=== PATIENT | male | born 1985 | race Caucasian/White ===

== ENCOUNTER 2020-11-29 16:36 | Emergency (ER) | payer SELFPAY ==
[~2020-11-29] VITALS: Ht 175.3 cm; Wt 63.6 kg
[~2020-11-29 16:36] MED LIST: AMOXICILLIN 50500 MG PO; NORCO 325 MG-51 TAB PO
[2020-11-29 17:37] VITALS: BP 118/77; TEMP 98
[2020-11-29 20:21] VITALS: PULSE 65
== END 2020-11-29 20:21 | disposition home or self-care (01) ==
LOC: COL.ER 16:36
DX: S92.512A Displaced fracture of proximal phalanx of left lesser toe(s), initial encounter for closed fracture (principal); W22.8XXA Striking against or struck by other objects, initial encounter

== ENCOUNTER 2021-06-12 16:50 | Emergency (ER) | payer SELFPAY ==
[~2021-06-12] VITALS: Ht 175.3 cm; Wt 63.6 kg
[2021-06-12 16:56] VITALS: TEMP 98
[2021-06-12 17:43] LABS: BASO % 0.4 % (0.0-2.0); EOS # 0.2 K/mm3 (0.0-0.7); EOS % 1.7 % (0.0-4.0); GRAN # 7.1 K/mm3 (1.4-6.5); GRAN % 73.4 % (42.2-75.2); HEMATOCRIT 51.3 % (42.0-52.0); HEMOGLOBIN 17.9 g/dl (13.5-18.0); LYMPH # 1.7 K/mm3 (1.2-3.4); LYMPH % 17.3 % (20.0-51.0); MEAN CELL VOLUME 95 fl (80.0-100.0); MEAN CORPUSCULAR HEMOGLOBIN 33 pg (27-31); MEAN CORPUSCULAR HGB CONC 35 g/dl (33.0-37.0); MEAN PLATELET VOLUME 9.1 fl (7.4-10.4); MONO # 0.7 K/mm3 (0.1-0.6); MONO % 6.8 % (1.7-9.3); PLATELET COUNT 274 K/mm3 (130-400); RED BLOOD COUNT 5.38 M/mm3 (4.20-5.60); REDCELL DISTRIBUTION WIDTH-CV 12.8 % (11.5-14.5)
[2021-06-12 18:01] LABS: ALANINE AMINOTRANSFERASE 40 U/L (0-55); ALBUMIN 4.8 gm/dL (3.5-5.0); ALKALINE PHOSPHATASE 83 U/L (40-150); ANION GAP 14 mmol/L (7-16); AST,SGOT 37 U/L (5-34); BLOOD UREA NITROGEN 10 mg/dL (9-21); CALCIUM 9.5 mg/dL (8.4-10.2); CARBON DIOXIDE 25 mmol/L (22-29); CHLORIDE 101 mmol/L (98-107); CREATININE, serum 0.87 mg/dL (0.72-1.25); GLUCOSE 110 mg/dL (70-99); LIPASE 21 U/L (8-78); POTASSIUM 4.2 mmol/L (3.5-4.5); SODIUM 140 mmol/L (136-145); TOTAL PROTEIN 7.9 gm/dL (6.2-8.1)
[2021-06-12 18:04] LABS: ALCOHOL(ethanol),MEDICAL < 10 mg/dL (0-10)
[2021-06-12 18:35] LABS: BILIRUBIN,TOTAL 0.8 mg/dL (0.2-1.2)
[2021-06-12] MEDS ORDERED: PRIL40 PO (18:51)
[2021-06-12 18:53] VITALS: BP 116/84; PULSE 82
== END 2021-06-12 19:03 | disposition home or self-care (01) ==
LOC: COL.ER 16:50
PROVIDERS: Emergency Medicine
DX: K92.0 Hematemesis (principal); F10.20 Alcohol dependence, uncomplicated; F17.210 Nicotine dependence, cigarettes, uncomplicated
CPT/HCPCS: C9113; J3411; J7030

== ENCOUNTER 2023-10-09 11:33 | Inpatient (IN) | payer SELFPAY ==
[~2023-10-09] VITALS: Ht 175.3 cm; Wt 65.4 kg
[~2023-10-09 11:33] MED LIST changes: +PRIL40 PO; +Thiamine 100 MG TAB PO SCH
[2023-10-09] MEDS ORDERED: LORazepam 2 MG/ML 1 ML VIAL IV ONE ×2 (12:00→14:00)
[2023-10-09] MEDS ORDERED: Folic Acid 1 MG,Thiamine 200 MG in NS 1,000 ML IV SCH (12:00)
[2023-10-09 12:20] LABS: HEMATOCRIT 51.8 % (42.0-52.0); HEMOGLOBIN 17.6 g/dl (13.5-18.0); MEAN CELL VOLUME 101 fl (80.0-100.0); MEAN CORPUSCULAR HEMOGLOBIN 34 pg (27-31); MEAN CORPUSCULAR HGB CONC 34 g/dl (33.0-37.0); PLATELET COUNT 234 K/mm3 (130-400); RED BLOOD COUNT 5.15 M/mm3 (4.20-5.60); REDCELL DISTRIBUTION WIDTH-CV 12.9 % (11.5-14.5)
[2023-10-09 12:31] LABS: ALBUMIN 5.3 g/dL (3.5-5.0); BILIRUBIN,TOTAL 2.1 mg/dL (0.2-1.2); CALCIUM 10.6 mg/dL (8.4-10.2); CREATININE, serum 1.35 mg/dL (0.72-1.25); MAGNESIUM 2.2 mg/dL (1.6-2.6); POTASSIUM 4.3 mEq/L (3.5-4.5); TOTAL PROTEIN 9.3 g/dl (6.2-8.1)
[2023-10-09] MEDS ORDERED: Ondansetron 4 MG/2 ML VIAL IV PRN (14:30)
[2023-10-09] MEDS ORDERED: LORazepam 2 MG/ML 1 ML VIAL IV PRN (14:30)
[2023-10-09] MEDS ORDERED: NS 1,000 ML IV SCH (14:30)
[2023-10-09] MEDS ORDERED: Polyethylene Glycol 3350 17 GM PDS PO PRN (14:30)
[2023-10-09] MEDS ORDERED: LORazepam 1 MG TAB PO PRN (14:30)
[2023-10-09] MEDS ORDERED: Docusate Sodium 100 MG CAP PO PRN (14:30)
[2023-10-09] MEDS ORDERED: Acetaminophen 325 MG TAB PO PRN (14:30)
[2023-10-09] MEDS ORDERED: Mag/Al Hydrox/Simeth Susp 30 ML CUP PO PRN (14:30)
[2023-10-09 14:44] LABS: PROTHROMBIN TIME 10.4 SECONDS (9.7-12.8)
[2023-10-09] MEDS ORDERED: D5 1/2 NS 1,000 ML IV SCH (14:45)
--- NOTE | 2023-10-09 16:41 | NUR ---
Pharmacy Intern was consulted in ED to provide alcohol cessation resources to patient. SW met with patient who stated he felt like he was going to throw up but was open to brief discussion. SW provided and reviewed resources, pointing out [facility] and [facility] as he is currently uninsured. Patient does not have a PCP so SW also discussed the [facility] in [place] that can provide primary care without insurance.
[2023-10-09] MEDS ORDERED: Multivitamin TAB PO SCH (17:00)
[2023-10-09 17:06] VITALS: BP 130/92; PULSE 121; TEMP 98.2
--- NOTE | 2023-10-09 17:10 | NUR ---
PT ON FLOOR FROM ER. SEIZURE PRECAUTIONS IN PLACE. PT ORIENTED TO ROOM, CALL LIGHT IN REACH, SMOKING POLICY AND VERBALIZED UNDERSTANDING. PT DOES HAVE PERSONAL CIGARETTES IN BAG AND REEDUCATED ON POLICY. PT DENIES NEEDS. FLUIDS STARTED PER ORDER. PT DENIES NEEDS. BED IN LOWEST POSITION, CALL LIGHT IN REACH, BED ALARM ON.
[2023-10-09 17:45] VITALS: BP_SYST 130
--- NOTE | 2023-10-09 17:48 | NUR ---
DR LA CALLED AND NOTIFIED THAT PT IS MODERATE PER SUICIDE ASSESSMENT. NOTIFIED THAT EVERY 15 MINUTE OBSERVATION ORDERED PER PROTOCOL. ADDICTION PROFESSIONAL NOTIFIED. PT IN BED. BED IN LOWEST POSITION, CALL LIGHT IN REACH, BED ALARM ON, SEIZURE PRECAUTIONS IN PLACE.
--- NOTE | 2023-10-09 18:36 | NUR ---
THIS NURSE CALLED DR HERNANDEZ AND NOTIFIED HIM OF 15 MINUTE OBSERVATIONS DUE TO MODERATE ON SUICIDE SCALE. PROVIDER TOLD THIS NURSE THAT DR LA WILL ROUND ON PT
--- NOTE | 2023-10-09 19:14 | NUR ---
PATIENT RESTING LYING ON LEFT SIDE WITH EYES CLOSED IN THE APPEARANCE OF SLEEP WITH NO FAMILY PRESENT WITH TV OFF WITH NO ACUTE DISTRESS NOTED. PATIENT ON ROOM AIR. D5 1/2 NS INFUSING INTO LEFT AC WITH NO COMPLICATIONS NOTED. BEDSIDE SHIFT REPORT COMPLETED WITH VETO GRIDER AT THIS TIME. BED IN LOW POSITION WITH WHEELS LOCKED WITH RAILS UP X3 AND CALL LIGHT WITHIN REACH. SEIZURE PRECAUTIONS IN PLACE. BED ALARM ON.
[2023-10-09 19:23] VITALS: BP 114/73; PULSE 92; TEMP 98.7
[2023-10-09 20:25] VITALS: BP_SYST 114
--- NOTE | 2023-10-09 20:25 | NUR ---
PATIENT RESTING WITH EYES CLOSED IN THE APPEARANCE OF SLEEP LYING ON RIGHT SIDE WITH TV ON WITH NO FAMILY PRESENT WITH NO ACTE DISTRESS NOTED. PATIENT ON ROOM AIR. D5 1/2 NS INFUSING INTO LEFT AC WITH NO COMPLICATIONS NOTED. PATIENT EASILY AROUSED. ASSESSMENT AND MEDICATION ADMINISTRATION COMPLETED AT THIS TIME. PATIENT TOLERATED WELL. PATIENT REQUESTED TO USE THE BATHROOM. PATIENT ASSISTED UP TO BATHROOM AND VOIDED 475 ML OF AMER COLORED CLEAR URINE INTO URINAL. PATIENT GAIT STEADY. PATIENT DID OWN NEAL CARE AND ASSISTED BACK TO BED WITH STAND BY ASSIST. PATIENT DENIES ANY OTHER NEEDS. UA SENT TO LAB. BED IN LOW POSITION WITH WHEELS LOCKED WITH RAILS UP X3 AND CALL LIGHT WITHIN REACH. SEIZURE PRECAUTIONS IN PLACE. BED ALARM ON.
[2023-10-09 20:58] LABS: URINE APPEARANCE CLEAR (CLEAR/HAZY); URINE BLOOD NEGATIVE (NEGATIVE); URINE COLOR YELLOW (YELLOW); URINE GLUCOSE NEGATIVE (NEGATIVE); URINE KETONE 3+ (NEGATIVE); URINE NITRATE NEGATIVE (NEGATIVE); URINE PROTEIN(semi-quant) NEGATIVE (NEGATIVE); URINE UROBILINOGEN 0.2 E.U/dL (0.2-1.0)
[2023-10-09 21:10] LABS: TRICYCLIC ANTIDEPRESS URINE NEGATIVE (NEGATIVE)
[2023-10-09 21:16] LABS: COLLECTION METHOD CLEAN CATCH
[2023-10-09 21:50] VITALS: BP 125/77; PULSE 95; TEMP 99
[2023-10-09 23:43] VITALS: BP 134/47; PULSE 84; TEMP 98.4
[2023-10-10] VITALS (13 sets, daily range): BP systolic 105–134; BP diastolic 60–84; PULSE 67–104; TEMP 98–99.3
[2023-10-10 07:06] LABS: BASO % 0.3 % (0.0-2.0); EOS # 0.1 K/mm3 (0.0-0.7); EOS % 0.7 % (0.0-4.0); GRAN # 9.2 K/mm3 (1.4-6.5); GRAN % 75.9 % (42.2-75.2); HEMATOCRIT 43.3 % (42.0-52.0); LYMPH # 1.4 K/mm3 (1.2-3.4); LYMPH % 11.9 % (20.0-51.0); MEAN CORPUSCULAR HGB CONC 35 g/dl (33.0-37.0); MEAN PLATELET VOLUME 10.3 fl (7.4-10.4); MONO # 1.3 K/mm3 (0.1-0.6); MONO % 10.9 % (1.7-9.3); PLATELET COUNT 166 K/mm3 (130-400); RED BLOOD COUNT 4.51 M/mm3 (4.20-5.60); REDCELL DISTRIBUTION WIDTH-CV 12.7 % (11.5-14.5)
[2023-10-10 07:15] LABS: ALBUMIN 4.1 g/dL (3.5-5.0); BILIRUBIN,TOTAL 1.7 mg/dL (0.2-1.2); CALCIUM 9.6 mg/dL (8.4-10.2); CREATININE, serum 0.8 mg/dL (0.72-1.25); POTASSIUM 3.3 mEq/L (3.5-4.5); TOTAL PROTEIN 7.1 g/dl (6.2-8.1)
[2023-10-10 07:18] LABS: HEMOGLOBIN 15.2 g/dl (13.5-18.0); MEAN CELL VOLUME 96 fl (80.0-100.0); MEAN CORPUSCULAR HEMOGLOBIN 34 pg (27-31)
[2023-10-10] MEDS ORDERED: Folic Acid 1 MG TAB PO SCH (09:00)
--- NOTE | 2023-10-10 09:07 | NUR ---
Patient sitting up eating breakfast. A&Ox4. VSS, HR tachycardic. Reports some reflx, will notify the doctor. ETOH protocol in place. Seizure precautions in place. Bed alarm on. Call light within reach
[2023-10-10] MEDS ORDERED: *Potassium Replacement Protocol MC SCH (11:30)
[2023-10-10] MEDS ORDERED: Potassium Bicarbonate/Citrate 20 MEQ Effervescent TAB PO SCH (11:30)
--- NOTE | 2023-10-10 14:56 | NUR ---
Data: Spiritual care visit attempted during Audio Production Instructor rounds. Patient was sleeping. Assessment: None. Patient sleeping. Plan of Care: Chaplains will remain available as needed/requested while Patient is admitted to this hospital.
--- NOTE | 2023-10-10 20:43 | NUR ---
PT ALERT AND ORIENTED, RESTING IN BED COMFORTABLY. VSS, INCREASED ANXIETY R/T WANTING TO GO OUTSIDE FOR SOME FRESH AIR AND ALSO WANTS A CIGARETTE. I EXPLIANED THAT BECAUSE OF HIM BEING ON SEIZURE PRECAUTIONS AND HX OF ALCOHOL WITHDRAWL SEIZURES WE CANT ALLOW HIM OFF SITE AT THIS TIME BUT DID OFFER T O REQUEST A NICOTINE PATCH FROM PROVIDER. MILD TREMORS NOTED AND HIGH AND INCREASING ANXIETY WITH NAUSEA AND VOMITING. PLEASANT AT THIS TIME HOWEVER VERY ANXIOUS ABOUT GETTING A CIGARETTE. FALL PRECAUTIONS IN PLACE, CALL LIGHT WITHIN REACH.
[2023-10-11] VITALS (18 sets, daily range): BP systolic 99–142; BP diastolic 56–91; PULSE 62–91; TEMP 97.5–99.1
[2023-10-11 06:42] LABS: BASO % 0.7 % (0.0-2.0); EOS # 0.1 K/mm3 (0.0-0.7); EOS % 1.8 % (0.0-4.0); GRAN # 3.3 K/mm3 (1.4-6.5); GRAN % 59.9 % (42.2-75.2); HEMATOCRIT 40.6 % (42.0-52.0); HEMOGLOBIN 14.2 g/dl (13.5-18.0); LYMPH # 1.5 K/mm3 (1.2-3.4); LYMPH % 27.4 % (20.0-51.0); MEAN CELL VOLUME 95 fl (80.0-100.0); MEAN CORPUSCULAR HEMOGLOBIN 33 pg (27-31); MEAN CORPUSCULAR HGB CONC 35 g/dl (33.0-37.0); MEAN PLATELET VOLUME 10.1 fl (7.4-10.4); MONO # 0.6 K/mm3 (0.1-0.6); PLATELET COUNT 142 K/mm3 (130-400); RED BLOOD COUNT 4.28 M/mm3 (4.20-5.60); REDCELL DISTRIBUTION WIDTH-CV 12.4 % (11.5-14.5)
[2023-10-11 07:05] LABS: ALBUMIN 3.7 g/dL (3.5-5.0); BILIRUBIN,TOTAL 1.9 mg/dL (0.2-1.2); CALCIUM 9.1 mg/dL (8.4-10.2); CREATININE, serum 0.68 mg/dL (0.72-1.25); POTASSIUM 3.4 mEq/L (3.5-4.5); TOTAL PROTEIN 6.5 g/dl (6.2-8.1)
[2023-10-11] MEDS ORDERED: Potassium Bicarbonate/Citrate 20 MEQ Effervescent TAB PO SCH (08:15)
--- NOTE | 2023-10-11 08:40 | NUR ---
Patient sleeping, easily arousable. Alert and oriented x 4, VSS, states no nausea or vomiting. He sais he is just tired. New dressing on LAC site sice some leaking. New IV started on RFA. Getting fluids per orders. Assessment completed. Seizure prec in place. No further needs at this time. Call light within reach.
--- NOTE | 2023-10-11 09:34 | NUR ---
LUCIANO met with Pt bedside to complete initial assessment and discuss discharge planning. Pt has no advanced directions and does not want to fill any out while he is here. FERNIE decision maker is nena Kaufman [phone]. Pt does not have insurance, no PCP and [facility] he has to get meds. Pt is currently homeless and one of his friends will sometimes let him sleep on his couch. [facility] but rarely able to. Pt sleeps outside usually. Pt uses reading glasses but no additional DME. LUCIANO will send email to financial assistance for Pt. When in ER, Pt was on suicide risk for moderate risk. Pt has been cleared from that. Pt was given resources in ER. Pt would like additional resources for housing and financial assistance. Pt very worried about where he will go when he discharges. D/C Disposition: Homeless
--- NOTE | 2023-10-11 10:03 | NUR ---
SW sent secure email to [employer] to request visit to complete FAA.
[2023-10-11] MEDS ORDERED: Pantoprazole 40 MG in NS 10 ML IV SCH (11:04)
[2023-10-11] MEDS ORDERED: Nicotine 21 MG DAILY PATCH TD SCH (11:15)
[2023-10-12] VITALS (11 sets, daily range): BP systolic 113–142; BP diastolic 76–84; PULSE 71–79; TEMP 98–99.1
[2023-10-12 06:08] LABS: BASO % 0.8 % (0.0-2.0); EOS # 0.1 K/mm3 (0.0-0.7); EOS % 2.4 % (0.0-4.0); GRAN # 3.1 K/mm3 (1.4-6.5); GRAN % 58.4 % (42.2-75.2); HEMATOCRIT 42.8 % (42.0-52.0); LYMPH # 1.5 K/mm3 (1.2-3.4); LYMPH % 28.8 % (20.0-51.0); MEAN CELL VOLUME 97 fl (80.0-100.0); MEAN CORPUSCULAR HEMOGLOBIN 34 pg (27-31); MEAN CORPUSCULAR HGB CONC 35 g/dl (33.0-37.0); MEAN PLATELET VOLUME 11.7 fl (7.4-10.4); MONO # 0.5 K/mm3 (0.1-0.6); MONO % 9.4 % (1.7-9.3); PLATELET COUNT 104 K/mm3 (130-400); REDCELL DISTRIBUTION WIDTH-CV 12.5 % (11.5-14.5)
[2023-10-12 06:39] LABS: ALBUMIN 3.7 g/dL (3.5-5.0); BILIRUBIN,TOTAL 1.5 mg/dL (0.2-1.2); CALCIUM 9.3 mg/dL (8.4-10.2); CREATININE, serum 0.67 mg/dL (0.72-1.25); POTASSIUM 4.1 mEq/L (3.5-4.5); TOTAL PROTEIN 6.9 g/dl (6.2-8.1)
--- NOTE | 2023-10-12 08:18 | NUR ---
Patient resting in bed, lights off. Alert and oriented x 4, states he had a good night. He would like to go home today and come back to his job. Tolerating food, eating a little more. Not scoring for CIWA. Assessment completed, meds given. No further needs at this time. Call light within reach.
[2023-10-12 12:51] LABS: MONOSCREEN NEGATIVE
[2023-10-12] MEDS ORDERED: Melatonin 3 MG TAB PO SCH (21:00)
--- NOTE | 2023-10-12 21:08 | NUR ---
PATIENT IS RESTING IN BED WATCHING TV. DENIES ANY PAIN OR NAUSEA AT THIS TIME. HE IS WANTING TO KNOW IF HIS ABDOMINAL ULTRASOUND RESULTS ARE IN, THIS RN INFORMED HIM THAT HE WOULD HAVE TO DISCUSS THESE RESULTS WITH THE PROVIDER. HE DENIES ANY OTHER NEEDS AT THIS TIME. CALL LIGHT IS WITHIN REACH. BED IS LOCKED AND IN LOW POSITION.
[2023-10-13] VITALS (13 sets, daily range): BP systolic 102–132; BP diastolic 58–85; PULSE 62–88; TEMP 98.2–98.8
[2023-10-13 06:27] LABS: BASO % 0.7 % (0.0-2.0); EOS # 0.3 K/mm3 (0.0-0.7); EOS % 4.7 % (0.0-4.0); GRAN # 3.1 K/mm3 (1.4-6.5); GRAN % 51.9 % (42.2-75.2); HEMATOCRIT 43.5 % (42.0-52.0); HEMOGLOBIN 15.1 g/dl (13.5-18.0); LYMPH # 1.8 K/mm3 (1.2-3.4); LYMPH % 30.4 % (20.0-51.0); MEAN CELL VOLUME 97 fl (80.0-100.0); MEAN CORPUSCULAR HEMOGLOBIN 34 pg (27-31); MEAN CORPUSCULAR HGB CONC 35 g/dl (33.0-37.0); MEAN PLATELET VOLUME 10.3 fl (7.4-10.4); MONO # 0.7 K/mm3 (0.1-0.6); PLATELET COUNT 147 K/mm3 (130-400); RED BLOOD COUNT 4.49 M/mm3 (4.20-5.60); REDCELL DISTRIBUTION WIDTH-CV 12.6 % (11.5-14.5)
[2023-10-13 07:00] LABS: ALBUMIN 3.9 g/dL (3.5-5.0); BILIRUBIN,TOTAL 1.1 mg/dL (0.2-1.2); CALCIUM 9.7 mg/dL (8.4-10.2); CREATININE, serum 0.82 mg/dL (0.72-1.25); POTASSIUM 4.1 mEq/L (3.5-4.5); TOTAL PROTEIN 6.9 g/dl (6.2-8.1)
[2023-10-13 10:43] LABS: PROTHROMBIN TIME 11.4 SECONDS (9.7-12.8)
--- NOTE | 2023-10-13 19:15 | NUR ---
PATIENT RESTING IN BED SITTING UP WITH TV ON WITH NO FAMILY PRESENT WITH NO ACUTE DISTRESS NOTED. PATIENT ON ROOM AIR. INT TO RIGHT FOREARM INTACT WITH NO COMPLICATIONS NOTED. BEDSIDE SHIFT REPORT COMPLETED WITH LOLY AT THIS TIME. PATIENT DENIES ANY NEEDS. BED IN LOW POSITION WITH RAILS UP X3 AND CALL LIGHT WITHIN REACH.
--- NOTE | 2023-10-13 22:50 | NUR ---
PATIENT SITTING UP IN BED WATCHING TV WITH NO FAMILY PRESENT WITH NO ACUTE DISTRESS NOTED. PATIENT ON ROOM AIR. INT TO RIGHT FOREARM INTACT WITH NO COMPLICATIONS NOTED. ASSESSMENT AND MEDICATION ADMINISTRATION COMPLETED AT THIS TIME. INT TO RIGHT FOREARM FLUSH AND INFILTRATED. INT REMOVED WITH CATHETER INTACT AND PRESSURE DRESSING APPLIED. NEW INT OBTAINED IN RIGHT FOREARM NEAR AC WITH ONE STICK. PATIENT TOLERATED WELL. NEW IV FLUSHED AND PROTONIX GIVEN PER MD ORDER. PATIENT REQUESTED MORE ICE. PITCHER FILLED UP WITH ICE AND WATER, SANDWICH, CUP OF ICE, PEPSI, AND ICE CREAM GIVEN. PATIENT DENIES ANY OTHER NEEDS. BED IN LOW POSITION WITH WHEELS LOCKED WITH RAILS UP X3 AND CALL LIGHT WITHIN REACH.
[2023-10-14 00:05] VITALS: BP_SYST 122
[2023-10-14 03:56] VITALS: BP 123/81; PULSE 59; TEMP 98.3
[2023-10-14 04:05] VITALS: BP_SYST 123
[2023-10-14 07:25] VITALS: BP 115/75; PULSE 58; TEMP 98.2
[2023-10-14 07:41] LABS: BASO # 0.1 K/mm3 (0.0-0.2); BASO % 1.1 % (0.0-2.0); EOS # 0.3 K/mm3 (0.0-0.7); EOS % 5.9 % (0.0-4.0); GRAN # 2.5 K/mm3 (1.4-6.5); GRAN % 46.3 % (42.2-75.2); HEMATOCRIT 44.2 % (42.0-52.0); HEMOGLOBIN 15.1 g/dl (13.5-18.0); LYMPH # 1.7 K/mm3 (1.2-3.4); LYMPH % 30.6 % (20.0-51.0); MEAN CELL VOLUME 99 fl (80.0-100.0); MEAN CORPUSCULAR HEMOGLOBIN 34 pg (27-31); MEAN CORPUSCULAR HGB CONC 34 g/dl (33.0-37.0); MEAN PLATELET VOLUME 10.6 fl (7.4-10.4); MONO # 0.9 K/mm3 (0.1-0.6); MONO % 15.7 % (1.7-9.3); PLATELET COUNT 183 K/mm3 (130-400); RED BLOOD COUNT 4.47 M/mm3 (4.20-5.60); REDCELL DISTRIBUTION WIDTH-CV 12.9 % (11.5-14.5)
[2023-10-14 07:54] LABS: INR 1.1 (0.8-3.0); PROTHROMBIN TIME 11.7 SECONDS (9.7-12.8)
[2023-10-14 08:03] LABS: CREATININE, serum 0.83 mg/dL (0.72-1.25); TOTAL PROTEIN 7.2 g/dl (6.2-8.1)
[2023-10-14 09:00] VITALS: BP_SYST 115
[2023-10-14] MEDS ORDERED: FOLIC ACID 11 MG/TA1 PO (09:34)
[2023-10-14] MEDS ORDERED: THIAMINE 1100 MG/TAB PO (09:34)
[2023-10-14] MEDS ORDERED: DUO-KAPS1 CAP PO (09:34)
[2023-10-14] MEDS ORDERED: PROTONIX 40MG T40 MG PO (09:35)
--- NOTE | 2023-10-14 10:15 | NUR ---
PT LAYING IN BED UPON ENTERING. ASSESSMENT DONE, MEDS GIVEN. PT REFUSED NICOTINE PATCH AND STATES "IM GOING TO CHAIN SMOKE WHEN I GET OUT OF HERE". THIS NURSE EDUCATED PT ON PATCH AND PT STILL REFUSED. SEIZURE PRECAUTIONS IN PLACE. INT TO RIGHT FOREARM PATENT. PT DENIES NEEDS. BED IN LOWEST POSITION, CALL LIGHT IN REACH
--- NOTE | 2023-10-14 10:53 | NUR ---
metal worker attended clinical rounding and was informed pt can discharge today and reviewed notes stating pt is homeless and does not utilize the [facility]. Dr. Harpreet Hernandez spoke with pt who expresses he will take the [facility] bus upon discharge and go to his friend's house. He did not voice any concerns to Dr. Hernandez. SW met with pt and provided [facility] location and phone number. SW provided new patient forms and instructed pt to fill them out to take to his first appointment. He has no further needs. Discharge Plan: friend's house
--- NOTE | 2023-10-14 11:09 | NUR ---
INT REMOVED AND PT DRESSED IN PERSONAL CLOTHES. DISCHARGE INSTRUCTIONS GIVEN, PT VERBALIZED UNDERSTANDING. PT REPORTS HE IS TAKING THE BUS FROM THE HOSPITAL. SOCIAL WORK NOTIFIED AND OKAY WITH THIS. PT UPDATED AND ESCORTED TO ER ENTRANCE AND AMBULATED TO BUS STOP.
== END 2023-10-14 11:10 | disposition home or self-care (01) | DRG 897 ==
LOC: COL.ER 11:33 → MEDICAL 14:24 → COL.ER 14:24 → MEDICAL 14:24
PROVIDERS: Family Medicine; Physician Assistant; ADMIT Hospitalist
DX: F10.139 Alcohol abuse with withdrawal, unspecified (principal); N17.9 Acute kidney failure, unspecified; D72.829 Elevated white blood cell count, unspecified; E80.6 Other disorders of bilirubin metabolism; K70.10 Alcoholic hepatitis without ascites; E88.89 Other specified metabolic disorders; D69.6 Thrombocytopenia, unspecified; E87.6 Hypokalemia; Z72.0 Tobacco use
CPT/HCPCS: G0378; J1650; J2060; J2405; J2470; J3411; J7030